=== PATIENT | female | born 1995 | race Caucasian/White ===

== ENCOUNTER 2017-07-27 22:53 | Emergency (ER) | payer MEDICAID ==
[~2017-07-27] VITALS: Ht 149.9 cm; Wt 66.0 kg
[2017-07-27 23:01] VITALS: BP 119/79
[2017-07-27] MEDS ORDERED: FAMOTIDINE 20 MG TABLET PO ONE (23:30)
[2017-07-27] MEDS ORDERED: FAMOTIDINE 20 MG TABLET ONE (23:30)
== END 2017-07-27 23:51 | disposition home or self-care (01) ==
LOC: ED 23:30
DX: L03.116 Cellulitis of left lower limb (principal)
CPT/HCPCS: 99284; J7512; Q0177